=== PATIENT | male | born 1935 | race Caucasian/White ===

== ENCOUNTER → 2020-05-14 | Outpatient (CLI) | payer MEDICARE ==
--- NOTE | 2020-05-14 09:50 | CT ---
EXAMINATION TYPE: CT lumbar spine wo con DATE OF EXAM: 05/14/2020 7:09 AM COMPARISON: None HISTORY: Low back pain CT DLP: 894 mGycm Automated exposure control for dose reduction was used. Unenhanced CT of the lumbar spine was performed. Bone and soft tissue window settings are submitted as well as coronal and sagittal reconstructions. There is diffuse mild to moderate disc space narrowing and anterior osteophytosis. No vertebral body height loss. L1-L2: No disc herniation protrusion or central stenosis. No evidence for foraminal encroachment. L2-L3: There is circumferential disc bulge with effacement of the ventral aspect of the thecal sac. M oderate central stenosis. Mild left foraminal encroachment. L3-L4: Mild disc bulge. Mild canal stenosis. Mild right foraminal encroachment. L4-L5: Mild disc bulge. No canal stenosis. Bilateral foraminal encroachment. Facet arthropathy. L5-S1: Minimal posterior disc protrusion. No canal stenosis. Severe bilateral foraminal encroachment. Facet arthropathy. IMPRESSION: Degenerative changes as above, worst at L2-L3 with moderate central stenosis, and L5-S1 bilateral sev ere neural foramina narrowing.
== END | disposition home or self-care (01) ==
LOC: RADCTMAIN 06:43
PROVIDERS: ATTEND Orthopaedic Surgery Orthopaedic Surgery of the Spine
DX: M48.061 Spinal stenosis, lumbar region without neurogenic claudication (principal); M47.816 Spondylosis without myelopathy or radiculopathy, lumbar region; M51.36 Other intervertebral disc degeneration, lumbar region; M54.16 Radiculopathy, lumbar region
CPT/HCPCS: 72131

== ENCOUNTER → 2021-01-08 | Outpatient (CLI) | payer MEDICARE, OTHER ==
--- NOTE | 2021-01-08 16:56 | CONS ---
CONSULTATION DATE OF SERVICE: 01/08/2021 This 85-year-old gentleman has been evaluated in [facility] for possible obstructive sleep apnea-hypopnea syndrome. HISTORY OF PRESENT ILLNESS/SLEEP-WAKE EVALUATION: Patient's usual sleep schedule is from 10 p.m. until 6:30 or 7 a.m. Usually no significant problems with falling asleep. No TV in bedroom. The patient usually sleeps on the side position and also in the chair. He snores loudly, according to his , and has witnessed episodes by her of stopped breathing during sleep. He wakes up from sleep 2 times with nocturia, episodes of gasping for air, sweating, heartburn. During the day, the patient falls asleep several times. Ulmer Sleepiness Scale is significantly increased to 12. No history of vivid dreams during naps. No history of hypnagogic hallucinations. 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 PAST SURGICAL HISTORY: Dorset filter insertion, permanent pacemaker insertion, surgery for melanoma of the face. MEDICATIONS: 1. Warfarin 2 mg once a day. 2. Aspirin 81 mg once a day. 3. Losartan 100 mg once a day. 4. Escitalopram. 5. Vitamin D3. 6. [id number] medication for acid reflux. SOCIAL HISTORY: Positive for smoking; quit 30 years ago. Alcohol consumption is occasional. FAMILY HISTORY: Thyroid problems, crib . REVIEW OF SYSTEMS: Awakenings from sleep, sleepiness during the day, loud snoring. PHYSICAL EXAMINATION: GENERAL: A pleasant gentleman without distress. VITAL SIGNS: BP 168/79, HR 68, RR 12, height 5 feet 6-1/2 inches, weight 212 pounds. Temperature 98.2, oxygen saturation at room air 96%. HEENT: PERRLA, EOMI. Evaluation of oropharynx showed tongue protrudes midline. Extremely low position of soft palate. Mallampati IV. NECK: Supple. No JVD. Thyroid is not palpable. Wide neck; 18 inches in circumference. LUNGS: Clear to percussion and to auscultation. Good air exchange. No wheezing or rhonchi. HEART: S1, S2 regular. No murmurs, gallops or rubs. ABDOMEN: Obese. EXTREMITIES: No clubbing or cyanosis. CASHIER RECEPTIONIST: Awake, alert, and oriented X3. Cranial nerves 2 to 7 intact. There is no fasciculation or atrophy. noted. No focal deficits observed. IMPRESSION: 1. Loud snoring, witnessed episodes of stopped breathing during sleep, awakenings from sleep with nocturia, extremely low position of soft palate, Mallampati IV, wide neck at 18 inches in circumference, sleepiness, Ulmer Sleepiness Scale is 12; obstructive sleep apnea-hypopnea syndrome. 2. Anxiety. 3. Hypertension. 4. History of left leg deep venous thrombosis with pulmonary embolism. 5. Status post Gila filter insertion. 6. Status post permanent pacemaker insertion. 7. Status post surgical treatment of melanoma of the face. PLAN: 1. Polysomnography for evaluation of patient's breathing during sleep. 2. CPAP/BiPAP titration if sleep study confirms obstructive sleep apnea-hypopnea syndrome. 3. Preferable position during sleep on the side. 4. No driving if patient feels any sleepiness. 5. I will see patient for follow up visit to explain results of testing and following plan. Thank you very much for referring this patient for consultation. Sincerely, Marty Luciano MD, PhD, FAASM Diplomat of [place] [employer] [place] [employer] [facility] [facility] [place] MMODL / IJN: [id number] /
== END ==
LOC: SLEEP 15:17
PROVIDERS: ATTEND Internal Medicine
DX: G47.33 Obstructive sleep apnea (adult) (pediatric) (principal); F41.9 Anxiety disorder, unspecified; I10 Essential (primary) hypertension; Z86.718 Personal history of other venous thrombosis and embolism; Z95.0 Presence of cardiac pacemaker; Z95.828 Presence of other vascular implants and grafts; Z48.817 Encounter for surgical aftercare following surgery on the skin and subcutaneous tissue; Z87.891 Personal history of nicotine dependence

== ENCOUNTER → 2021-06-18 | Day surgery (SDC) | payer MEDICARE ==
[2021-06-15 13:30] VITALS: BMI 31.3
[~2021-06-18] MED LIST: SODIUM CHLORIDE 0.9% 1,000 ML IV SCH
[2021-06-18 09:13] VITALS: BP 181/80; PULSE 74; RESP 16; TEMP 98.2
[2021-06-18 09:29] LABS: INR 2.2 (<1.2)
--- NOTE | 2021-06-18 17:15 | P.EPPROC ---
- EP Procedure Note Electrophysiology Procedure Note: Diagnosis Recurrent syncope/presyncope Twelve-lead EKG shows atrial paced rhythm, prolonged VT interval Frequent PVCs Tilt table test for protocol Baseline blood pressure 205/89 mmHg, Baseline heart rate 63 beats a minute Patient was tilted upright at night of 70 per protocol There was an immediate drop in his blood pressure to 163/70 mmHg upon assuming upright position but without any symptoms Thereafter his blood pressure remained elevated. 160 290 mmHg systolic. Diastolic blood pressures are normal No symptoms noted in his late the laid supine Impression Baseline 12-lead EKG shows an atrial paced rhythm with appropriate interval and frequent PVCs Baseline hypertension No evidence for neurocardiogenic syncope or dysautonomia
== END ==
LOC: CATHEP 08:30
PROVIDERS: ATTEND Internal Medicine Clinical Cardiac Electrophysiology
DX: R55 Syncope and collapse (principal); I25.10 Atherosclerotic heart disease of native coronary artery without angina pectoris; E66.9 Obesity, unspecified; I48.0 Paroxysmal atrial fibrillation; I44.2 Atrioventricular block, complete; Z86.718 Personal history of other venous thrombosis and embolism; Z79.01 Long term (current) use of anticoagulants; Z95.0 Presence of cardiac pacemaker; I49.3 Ventricular premature depolarization; G47.33 Obstructive sleep apnea (adult) (pediatric); I10 Essential (primary) hypertension; F17.210 Nicotine dependence, cigarettes, uncomplicated
CPT/HCPCS: 85610; 93660

== ENCOUNTER 2022-04-06 12:56 | Inpatient (IN) | payer MEDICARE ==
[2022-04-06] MEDS ORDERED: NITROGLYCERIN SL TABS 0.4 MG TAB SUBLINGUAL PRN (13:45)
[2022-04-06] MEDS ORDERED: SODIUM CHLORIDE 0.9% 1,000 ML IV ONE (14:06)
[2022-04-06] MEDS ORDERED: VERAPAMIL 2.5 MG/ML 2 ML AMP ONE (14:59)
[2022-04-06] MEDS ORDERED: fentaNYL (PF) 50 MCG/ML 2 ML AMP ONE (14:59)
[2022-04-06] MEDS ORDERED: HEPARIN SODIUM 1,000 UN/ML (10ML VL) ONE (14:59)
[2022-04-06] MEDS: HEPARIN SODIUM 1,000 UN/ML (10ML VL) IV ONE ×3 (15:52→16:30)
[2022-04-06] MEDS ORDERED: fentaNYL (PF) 50 MCG/ML 2 ML AMP IV ONE (15:59)
[2022-04-06] MEDS ORDERED: MIDAZOLAM 2 MG/2 ML VIAL IV ONE (15:59)
[2022-04-06] MEDS ORDERED: NITROGLYCERIN 1000MCG/10ML SYRINGE INTRACORON ONE (16:17)
[2022-04-06] MEDS ORDERED: IOPAMIDOL-370 125ML BTL INJ ONE ×2 (16:45)
[2022-04-06] MEDS ORDERED: IOPAMIDOL-370 100ML BTL INJ ONE (16:50)
[2022-04-06] MEDS: ACETAMINOPHEN TAB 325 MG TAB PO PRN (20:44)
[2022-04-06] MEDS: LOSARTAN 50 MG TAB PO SCH (20:45)
[2022-04-07] MEDS: ASPIRIN 81 MG PO SCH (07:31)
[2022-04-07] MEDS: LOSARTAN 50 MG TAB PO SCH ×2 (07:31→20:06)
[2022-04-07] MEDS ORDERED: WARFARIN 2 MG TAB PO SCH (09:45)
[2022-04-07] MEDS: ACETAMINOPHEN TAB 325 MG TAB PO PRN (10:04)
[2022-04-07] MEDS: METOPROLOL TARTRATE 25 MG TAB PO SCH ×2 (10:04→20:06)
[2022-04-07] MEDS: CLOPIDOGREL 75 MG TAB PO SCH (10:04)
--- NOTE | 2022-04-07 10:11 | P.PRCINT ---
Percutaneous Coronary Int. - Percutaneous Coronary Intervention Percutaneous Coronary Intervention: PROCEDURES PERFORMED: Bilateral coronary angiography, PCI mid OM2 with a 3.0 x 8mm Xience CASSANDRA, PCI proximal RCA with 3.5 x 12mm Xience CASSANDRA DATE OF PROCEDURE: 04/06/22 INDICATION: NSTEMI HISTORY: Patient is a pleasant 86-year-old male with history of prior CAD with prior stenting who presented with chest pain and was found to have elevated troponins. He had diagnostic heart catheterization which showed 95% OM2 joyce nosis and 90% RCA stenosis. Therefore PCI was recommended. CONSENT:I have discussed the risks, benefits and alternative therapies for the above-mentioned procedure and for both sedation/analgesia as well as necessary blood product administration, if indicated, as they pertain to this patient. The patient has indicated understanding and acceptance of the risks and procedures discussed. PROCEDURE: After the risks, benefits and alternatives of the above mentioned procedure explained in detail with the patient, informed consent was obtained. Patient was taken to the catheterization lab and prepped and draped in usual fashion. A 6-Cameroonian sheath had already been placed in the right radial artery. The decision was made to perform PCI of the OM 2. A CLS 3.5 guide was used to engage the left main. Heparin was given for ACT greater than 250. A 0.014 BMW wire was advanced into the distal OM 2. Balloon angioplasty was performed with a 1.5 and then a 2.5 balloon. Next a 3.0 x 8 mm Xience CASSANDRA was placed. Final angiograms were performed. Pre-intervention there was 95% stenosis and COCO 2 flow and postintervention there was 0% stenosis and COCO-3 flow. Decision was made to perform PCI of the RCA. A 6-Cameroonian FR4 guide was used to engage the RCA. A 0.014 MW wire was advanced into the distal RCA. Predilation was performed with a 2.5 balloon. Next a 3.5 x 12 mm Xience CASSANDRA was placed at the ostium. Final angiograms were performed. There was more distal 2030% stenosis felt best treated medically. Preintervention there was 90% stenosis and COCO 3 flow and postintervention there was 0% stenosis and COCO-3 flow. The right radial sheath was removed and a TR band was placed with hemostasis achieved. The patient tolerated the procedure well. Patient was transported back to the post catheterization holding area in stable condition. Conscious Sedation: Patient was monitored under the direct supervision of vision of myself for conscious sedation using Versed and fentanyl for a total duration of 51 minutes SELECTIVE CORONARY ARTERIOGRAPHY: LEFT MAIN: The left main is a large caliber vessel which bifurcates into the LAD and circumflex. There is 30% left main stenosis. LEFT ANTERIOR DESCENDING CORONARY ARTERY: LAD is a large caliber vessel which wraps around to the apex. There is a mid LAD 40% stenosis and otherwise mild luminal irregularities. LEFT CIRCUMFLEX CORONARY ARTERY: Left circumflex is a moderate caliber vessel with a moderate caliber OM2 which has a mid 95% stenosis. RIGHT CORONARY ARTERY: The right coronary artery is a moderate caliber vessel which gives off a PDA and PLV branch and is the dominant vessel. There is a proximal RCA 90% stenosis. FINAL IMPRESSION: 1. CAD as described above including 30% left main, 40% mid LAD, 95% OM2, 90% ostial RCA 2. S/p successful PCI mid OM2 with a 3.0 x 8mm Xience CASSANDRA, PCI proximal RCA with 3.5 x 12mm Xience CASSANDRA PLAN: 1. Aggressive risk factor modification per most recent ACC/AHA guidelines. 2. Continue coumadin and Plavix for 12 months.
[2022-04-07 11:14] LABS: Basophils % (A) 1 %; Eosinophils # (A) 0.1 k/uL (0-0.7); Eosinophils % (A) 2 %; HCT 43.8 % (39.0-53.0); HGB 14.1 gm/dL (13.0-17.5); Lymphocytes # (A) 1.1 k/uL (1.0-4.8); Lymphocytes % (A) 18 %; MCH 30.9 pg (25.0-35.0); MCHC 32.2 g/dL (31.0-37.0); MCV 95.8 fL (80.0-100.0); Mean Platelet Volume 8.6; Monocytes # (A) 0.5 k/uL (0-1.0); Monocytes % (A) 7 %; Neutrophils # (A) 4.6 k/uL (1.3-7.7); Neutrophils % (A) 72 %; Platelet Count 192 k/uL (150-450); RBC 4.57 m/uL (4.30-5.90); RDW 13.8 % (11.5-15.5); WBC 6.5 k/uL (3.8-10.6)
--- NOTE | 2022-04-07 11:15 | P.PN ---
Subjective Progress Note Date: 04/07/22 HISTORY OF PRESENT ILLNESS: This is an 86-year-old male who underwent cardiac catheterization with Dr. Harmon yesterday. He underwent stenting of the OM and RCA. Patient examined this morning at the bedside. Patient denies chest pain or pressure. Denies shortness of breath. Patient's blood pressure is elevated this morning with a systolic in the 180s. Right radial cath site with pulse present. PHYSICAL EXAM: VITAL SIGNS: Reviewed. GENERAL: Well-developed in no acute distress. NECK: Supple. No JVD or thyromegaly LUNGS: Respirations even and unlabored. Lungs essentially clear to auscultation bilaterally. HEART: Regular rate and rhythm. S1 and S2 heard. EXTREMITIES: Normal range of motion. No clubbing or cyanosis. Peripheral pulses intact. No lower extremity edema. ASSESSMENT: Non-STEMI, status post cardiac catheterization with stenting to the OM and RCA PLAN: Continue aspirin 81 mg daily Add atorvastatin 80 mg at night, Plavix 75 mg daily, and metoprolol tartrate 25 mg twice a day Continue losartan 50 mg twice a day Resume Coumadin Obtain 2-D echo to assess cardiac structure and function Patient may be discharged home this afternoon from a cardiac standpoint and follow up on an outpatient basis Nurse practitioner note has been reviewed by physician. Signing provider agrees with the documented findings, assessment, and plan of care. Objective - Vital Signs Vital signs: Vital Signs Temp 97.8 F 04/07/22 07:29 Pulse 78 04/07/22 07:29 Resp 18 04/07/22 07:29 BP 181/84 04/07/22 07:29 Pulse Ox 95 04/07/22 07:29 FiO2 Intake & Output 04/06/22 04/07/22 04/07/22 18:59 06:59 18:59 Intake Total 640 358 Output Total 250 Balance 390 358 Weight 95.4 kg Intake: IV 400 Oral 240 358 Output: Urine 250 Other: Voiding Method Toilet Toilet # Voids 3 1 # Bowel Movements 0 1
[2022-04-07 11:21] LABS: INR 1.2 (<1.2); Prothrombin Time 12.3 sec (9.0-12.0)
[2022-04-07 11:38] LABS: Calcium 8.9 mg/dL (8.4-10.2); Potassium 4.1 mmol/L (3.5-5.1)
[2022-04-07] MEDS ORDERED: HEPARIN SODIUM 1,000 UN/ML (10ML VL) IV ONE (11:51)
[2022-04-07] MEDS ORDERED: HEPARIN SODIUM 1,000 UN/ML (10ML VL) IV PRN (11:51)
[2022-04-07] MEDS: HEPARIN SOD,PORK IN 0.45% NACL 25,000 UNIT in 0.45% NACL 1 250ML.BAG IV SCH (12:11)
--- NOTE | 2022-04-07 12:19 | P.HPIM ---
History of Present Illness This is a pleasant 86 years old male with past medical history of Deep Vein Thrombosis on 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 Also he has elevated troponin concerning for STEMI. Patient underwent coronary angiography with PCI to the OM 2 and to the RCA because of 95% and 90% stenosis respectively. Today he is lying in the select unit comfortable. He denies any chest pain or dyspnea. No change in urine or bowel habits. No fever. He was seen in the hallway with the bedside nurse underwent well. Patient also concerned about his depression medication Lexapro Payroll Tax Specialist already on the case and the recommend in Coumadin and Plavix for 12 months. Also they recommended aspirin 81 mg He confirms to me takes Coumadin at home for many years for history of PE and DVT, his primary doctor recommended lifelong anticoagulation. Patient is hemodynamically stable. Labs including CBC is unremarkable. INR is 1.2. BMP is unremarkable. Review of Systems CONSTITUTIONAL: No fever, no malaise, no fatigue. HEENT: No recent visual problems or hearing problems. Denied any sore throat. CARDIOVASCULAR: No orthopnea, PND, no palpitations, no syncope. PULMONARY: No shortness of breath, no cough, no hemoptysis. GASTROINTESTINAL: No diarrhea, no nausea, no vomiting, no abdominal pain. Normoactive bowel sounds. NEUROLOGICAL: No headaches, no weakness, no numbness. HEMATOLOGICAL: Denies any bleeding or petechiae. GENITOURINARY: Denies any burning micturition, frequency, or urgency. MUSCULOSKELETAL/RHEUMATOLOGICAL: Denies any joint pain, swelling, or any muscle pain. ENDOCRINE: Denies any polyuria or polydipsia. Past Medical History Past Medical History: Cancer, Deep Vein Thrombosis (DVT), GERD/Reflux, Hypertension, Pulmonary Embolus (PE), Sleep Apnea/CPAP/BIPAP Additional Past Medical History / Comment(s): melanoma. prostate cancer tx with radiation seed. CPAP History of Any Multi-Drug Resistant Organisms: None Reported Past Surgical History: Heart Catheterization With Stent, Pacemaker Additional Past Surgical History / Comment(s): val filter Past Anesthesia/Blood Transfusion Reactions: Previous Problems w/ Anesthesia Additional Past Anesthesia/Blood Transfusion Reaction / Comment(s): difficult waking up after anesthesia, passed after anesthesia Date of Last Stent Placement:: unknown Type of Cardiac Device: Permanent Pacemaker Device Placement Date:: medtronic 06/04/2020 Past Psychological History: Depression Smoking Status: Former smoker Past Alcohol Use History: Occasional Additional Drug Use History / Comment(s): cbd cream - Past Family History Mother Family Medical History: Cancer Medications and Allergies Home Medications Medication Instructions Recorded Confirmed Type Aspirin [Adult Low Dose Aspirin EC] 81 mg PO DAILY 06/15/21 04/06/22 History Cholecalciferol [Vitamin D3 (25 50 mcg PO DAILY 06/15/21 04/06/22 History Mcg = 1000 Iu)] Losartan [Cozaar] 50 mg PO BID 06/15/21 04/06/22 History Escitalopram [Lexapro] 15 mg PO DAILY 04/06/22 04/06/22 History Omeprazole Magnesium [PriLOSEC OTC] 20 mg PO DAILY 04/06/22 04/06/22 History Warfarin Sodium [Jantoven] 2 mg PO SUMOTUTHFRSA 04/06/22 04/06/22 History Warfarin Sodium [Jantoven] 3 mg PO WE 04/06/22 04/06/22 History Atorvastatin [Lipitor] 80 mg PO HS #90 tab 04/07/22 Rx Clopidogrel [Plavix] 75 mg PO DAILY #90 tab 04/07/22 Rx Metoprolol Tartrate [Lopressor] 25 mg PO BID #180 tab 04/07/22 Rx Nitroglycerin Sl Tabs [Nitrostat] 0.4 mg SUBLINGUAL Q5M PRN #100 tab 04/07/22 Rx Allergies Allergy/AdvReac Type Severity Reaction Status Date / Time No Known Allergies Allergy Verified 04/06/22 17:40 Physical Exam Vitals: Vital Signs Temp Pulse Pulse Resp BP Pulse Ox 04/07/22 11:22 71 18 130/67 94 L 04/07/22 07:29 97.8 F 78 18 181/84 95 04/07/22 04:20 93 18 171/83 98 04/06/22 23:25 80 17 136/85 94 L 04/06/22 21:24 171/85 04/06/22 20:24 80 160/77 04/06/22 19:30 80 04/06/22 19:24 98 F 68 19 160/75 96 04/06/22 18:20 168/68 04/06/22 17:41 69 171/82 94 L 04/06/22 17:20 97.5 F L 65 20 187/84 96 04/06/22 14:07 98.5 F 63 16 201/109 96 Intake and Output 04/06/22 04/07/22 04/07/22 22:59 06:59 14:59 Intake Total 540 358 Balance 540 358 Intake: IV 300 Oral 240 358 Other: Voiding Method Toilet Toilet Toilet # Voids 1 3 1 # Bowel Movements 0 1 Weight 95.4 kg -GENERAL: The patient is alert and oriented x3, not in any acute distress. Obese HEENT: Pupils are round and equally reacting to light. EOMI. No scleral icterus. No conjunctival pallor. Normocephalic, atraumatic. No pharyngeal erythema. No thyromegaly. CARDIOVASCULAR: S1 and S2 present. No murmurs, rubs, or gallops. PULMONARY: Chest is clear to auscultation, no wheezing or crackles. ABDOMEN: Soft, nontender, nondistended, normoactive bowel sounds. No palpable or ganomegaly. MUSCULOSKELETAL: No joint swelling or deformity. EXTREMITIES: No cyanosis, clubbing, or pedal edema. NEUROLOGICAL: Gross neurological examination did not reveal any focal deficits. SKIN: No rashes. No petechiae Results CBC & Chem 7: 04/07/22 10:23 Labs: Abnormal Lab Results - Last 24 Hours (Table) 04/07/22 Range/Units 10:23 PT 12.3 H (9.0-12.0) sec INR 1.2 H (<1.2) Thrombosis Risk Factor Assmnt - Choose All That Apply Any of the Below Risk Factors Present?: Yes Each Factor Represents 1 point: Medical pt on bed rest Each Risk Factor Represents 3 Points: Age 75 years or older, History of DVT/PE Thrombosis Risk Factor Assessment Total Risk Factor Score: 7 Thrombosis Risk Factor Assessment Level: High Risk Assessment and Plan Assessment: None STEMI, status post PCI to the OM2 and to the RCA History of DVT and pulmonary embolism, on warfarin , subtherapeutic INR history of GERD Hypertension History of sleep apnea on CPAP/BiPAP History of melanoma History of coronary artery disease status post stent Status post Val Holter Status post permanent pacemaker Obesity with BMI of 32.9 Plan: This is a pleasant 86 years old male who presents with non-STEMI status post PCI. Also has subtherapeutic INR with history of PE and DVT. Continue with aspirin and Plavix and metoprolol Cardiology team on the case Resume Coumadin, give extra dose today. Check INR. Start heparin drip for bridging Labs and medication were reviewed.. Continue same treatment. Continue with symptomatic treatment. Resume home medication. Monitor lytes and vitals. DVT and GI prophylaxis. Further recommendations depends on the clinical course of the patient DVT prophylaxis: heparin and Coumadin GI Prophylaxis: Pepcid Case and plan discussed with patient and at bedside and they agree
[2022-04-07] MEDS ORDERED: HYDROcodone/APAP 5-325MG 1 EACH TAB PO PRN (12:20)
[2022-04-07] MEDS ORDERED: ACETAMINOPHEN TAB 325 MG TAB PO PRN (12:21)
[2022-04-07] MEDS: ESCITALOPRAM 5 MG TAB PO SCH (12:39)
[2022-04-07] MEDS ORDERED: polyethylene glycoL 3350 17 GM POWD.PACK PO PRN (14:28)
[2022-04-07] MEDS: DOCUSATE 100 MG CAP PO SCH ×2 (15:26→20:06)
[2022-04-07] MEDS ORDERED: WARFARIN 5 MG TAB PO ONE (18:00)
[2022-04-07] MEDS: ATORVASTATIN 80 MG TAB PO SCH (20:06)
[2022-04-08 07:02] LABS: Basophils % (A) 1 %; Eosinophils # (A) 0.1 k/uL (0-0.7); Eosinophils % (A) 2 %; HCT 44.3 % (39.0-53.0); HGB 14.1 gm/dL (13.0-17.5); Lymphocytes # (A) 1.6 k/uL (1.0-4.8); Lymphocytes % (A) 24 %; MCH 30.8 pg (25.0-35.0); MCHC 31.9 g/dL (31.0-37.0); MCV 96.4 fL (80.0-100.0); Mean Platelet Volume 8.3; Monocytes # (A) 0.5 k/uL (0-1.0); Monocytes % (A) 7 %; Neutrophils # (A) 4.6 k/uL (1.3-7.7); Neutrophils % (A) 65 %; Platelet Count 206 k/uL (150-450); RBC 4.59 m/uL (4.30-5.90); RDW 13.9 % (11.5-15.5)
[2022-04-08 07:11] LABS: INR 1.1 (<1.2)
[2022-04-08] MEDS: ESCITALOPRAM 5 MG TAB PO SCH (07:25)
[2022-04-08] MEDS: DOCUSATE 100 MG CAP PO SCH ×2 (07:25→19:59)
[2022-04-08] MEDS: METOPROLOL TARTRATE 25 MG TAB PO SCH ×2 (07:25→19:59)
[2022-04-08] MEDS: ASPIRIN 81 MG PO SCH (07:25)
[2022-04-08] MEDS: CLOPIDOGREL 75 MG TAB PO SCH (07:25)
[2022-04-08] MEDS: LOSARTAN 50 MG TAB PO SCH ×2 (07:25→19:59)
[2022-04-08] MEDS ORDERED: WARFARIN 2 MG TAB PO SCH (09:36)
[2022-04-08] MEDS: HEPARIN SOD,PORK IN 0.45% NACL 25,000 UNIT in 0.45% NACL 1 250ML.BAG IV SCH (09:45)
--- NOTE | 2022-04-08 09:56 | CA ---
Transthoracic Echo Report Name: Raz Mullins Age: 86 Gender: M : 1935 Exam Date: 04/07/2022 10:11 Exam Location: [place] [facility] Ht (in): 67 Wt (lb): 210 Ordering Physician: Rosita Bowen Attending/Referring Phys: [id number], Andrés Zoology Teacher Manda Gonzalez, QUIRINO Procedure CPT: Indications: LV function Cardiac Hx: Technical Quality: Contrast 1: Total Dose (mL): Contrast 2: Total Dose (mL): MEASUREMENTS (Male / Female) Normal Values 2D ECHO LV Diastolic Diameter PLAX 4.4 cm 4.2 - 5.9 / 3.9 - 5.3 cm LV Systolic Diameter PLAX 4.2 cm IVS Diastolic Thickness 1.2 cm 0.6 - 1.0 / 0.6 - 0.9 cm LVPW Diastolic Thickness 1.9 cm 0.6 - 1.0 / 0.6 - 0.9 cm LV Relative Wall Thickness 0.7 RV Internal Dim ED PLAX 3.0 cm LA Systolic Diameter LX 4.2 cm 3.0 - 4.0 / 2.7 - 3.8 cm M-MODE MV E Point Septal Separation 0.7 cm DOPPLER MV Area PHT 3.4 cm??? Mitral E Point Velocity 51.8 cm/s Mitral A Point Velocity 20.7 cm/s Mitral E to A Ratio 2.5 MV Deceleration Time 224.0 ms FINDINGS Left Ventricle Normal Left ventricular size, mild wall thickness left ventricular ejection fraction is estimated at 50-55 %. Right Ventricle Normal right ventricular size and function. Right Atrium Normal right atrial size. Left Atrium Mildly increased left atrial diameter. Mitral Valve Structurally normal mitral valve. Mild mitral regurgitation. Aortic Valve Trileaflet aortic valve. Aortic valve sclerosis. Tricuspid Valve Structurally normal tricuspid valve. Mild tricuspid regurgitation. Pulmonic Valve Structurally normal pulmonic valve. Pericardium Normal pericardium. Aorta Normal size aortic root and proximal ascending aorta. CONCLUSIONS Normal LV size and function Previewed by: Dr. Yobani Osman MD (Electronically Signed) Final Date: 08 April 2022 09:55
--- NOTE | 2022-04-08 12:29 | P.PN ---
Subjective Progress Note Date: 04/08/22 HISTORY OF PRESENT ILLNESS: This is an 86-year-old male who underwent cardiac catheterization with Dr. Harmon yesterday. He underwent stenting of the OM and RCA. Patient examined this morning at the bedside. Patient denies chest pain or pressure. Denies shortness of breath. Patient's blood pressure is elevated this morning with a systolic in the 180s. Right radial cath site with pulse present. 04/08/2022 Patient examined this morning at the bedside. Patient denies chest pain or pressure. He denies shortness of breath. Patient has a history of PE/DVT. He has been resumed on Coumadin yesterday. He was started on IV heparin per internal medicine. Vital signs are stable. Echocardiogram completed revealing ejection fraction 50-55%, mild MR, mild TR. PHYSICAL EXAM: VITAL SIGNS: Reviewed. GENERAL: Well-developed in no acute distress. NECK: Supple. No JVD or thyromegaly LUNGS: Respirations even and unlabored. Lungs essentially clear to auscultation bilaterally. HEART: Regular rate and rhythm. S1 and S2 heard. EXTREMITIES: Normal range of motion. No clubbing or cyanosis. Peripheral pulses intact. No lower extremity edema. ASSESSMENT: Non-STEMI, status post cardiac catheterization with stenting to the OM and RCA PLAN: Continue current cardiac medications Patient may be discharged home this afternoon from a cardiac standpoint and follow up on an outpatient basis Nurse practitioner note has been reviewed by physician. Signing provider agrees with the documented findings, assessment, and plan of care. Objective - Vital Signs Vital signs: Vital Signs Temp 97.7 F 04/08/22 07:22 Pulse 68 04/08/22 11:00 Resp 20 04/08/22 11:00 BP 116/71 04/08/22 11:00 Pulse Ox 94 L 04/08/22 11:00 FiO2 Intake & Output 04/07/22 04/08/22 04/08/22 18:59 06:59 18:59 Intake Total 594 455.667 Balance 594 455.667 Intake: Intake, IV Titration 215.667 Amount Heparin Sod,Pork in 0.45% 215.667 NaCl 25,000 unit In 0.45 % NaCl 1 250ml.bag @ 10. 482 UNITS/KG/HR 10 mls/hr IV .Q24H EDWARDO Rx#: [id number] Oral 594 240 Other: Voiding Method Toilet Toilet Toilet # Voids 2 1 0 # Bowel Movements 0 1 - Labs CBC & Chem 7: 04/08/22 06:40 04/07/22 10:23 Labs: Abnormal Lab Results - Last 24 Hours (Table) 04/07/22 Range/Units 17:19 APTT 53.0 H (22.0-30.0) sec
[2022-04-08] MEDS ORDERED: diphenhydrAMINE 25 MG CAP PO PRN (15:58)
[2022-04-08] MEDS ORDERED: WARFARIN 2 MG TAB PO ONE ×2 (18:00)
[2022-04-08] MEDS ORDERED: WARFARIN 10 MG TAB PO ONE (18:00)
[2022-04-08] MEDS ORDERED: WARFARIN 5 MG TAB PO ONE (18:00)
--- NOTE | 2022-04-08 18:35 | P.PN ---
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 Also he has elevated troponin concerning for STEMI. Patient underwent coronary angiography with PCI to the OM 2 and to the RCA because of 95% and 90% stenosis respectively. Today he is lying in the select unit comfortable. He denies any chest pain or dyspnea. No change in urine or bowel habits. No fever. He was seen in the hallway with the bedside nurse underwent well. Patient also concerned about his depression medication [facility] already on the case and the recommend in Coumadin and Plavix for 12 months. Also they recommended aspirin 81 mg He confirms to me takes Coumadin at home for many years for history of PE and DVT, his primary doctor recommended lifelong anticoagulation. Patient is hemodynamically stable. Labs including CBC is unremarkable. INR is 1.2. BMP is unremarkable. 04/08/2022 Patient remains asymptomatic, no chest pain or dyspnea. No other symptoms. Vitals stable. INR actually went below and to 1.1 after received 5 mg of Coumadin last night area Patient remains on heparin drip and we'll give it milligrams of Coumadin tonight and check INR tomorrow Patient family doctor is out of town, patient is to continue on anticoagulation. Objective - Vital Signs Vital signs: Vital Signs Temp 97.7 F 04/08/22 07:22 Pulse 66 04/08/22 07:34 Resp 18 04/08/22 07:22 BP 118/70 04/08/22 07:22 Pulse Ox 96 04/08/22 07:22 FiO2 Intake & Output 04/07/22 04/08/22 04/08/22 18:59 06:59 18:59 Intake Total 594 455.667 Balance 594 455.667 Intake: Intake, IV Titration 215.667 Amount Heparin Sod,Pork in 0.45% 215.667 NaCl 25,000 unit In 0.45 % NaCl 1 250ml.bag @ 10. 482 UNITS/KG/HR 10 mls/hr IV .Q24H [facility] Rx#: [id number] Oral 594 240 Other: Voiding Method Toilet Toilet Toilet # Voids 2 1 0 # Bowel Movements 0 1 - Exam -GENERAL: The patient is alert and oriented x3, not in any acute distress. Obese HEENT: Pupils are round and equally reacting to light. EOMI. No scleral icterus. No conjunctival pallor. Normocephalic, atraumatic. No pharyngeal erythema. No thyromegaly. CARDIOVASCULAR: S1 and S2 present. No murmurs, rubs, or gallops. PULMONARY: Chest is clear to auscultation, no wheezing or crackles. ABDOMEN: Soft, nontender, nondistended, normoactive bowel sounds. No palpable organomegaly. MUSCULOSKELETAL: No joint swelling or deformity. EXTREMITIES: No cyanosis, clubbing, or pedal edema. NEUROLOGICAL: Gross neurological examination did not reveal any focal deficits. SKIN: No rashes. no petechiae. - Labs CBC & Chem 7: 04/08/22 06:40 04/07/22 10:23 Labs: Abnormal Lab Results - Last 24 Hours (Table) 04/07/22 04/07/22 04/07/22 Range/Units 10:23 10:23 17:19 PT 12.3 H (9.0-12.0) sec INR 1.2 H (<1.2) APTT 53.0 H (22.0-30.0) sec Sodium 135 L (137-145) mmol/L Glucose 131 H (74-99) mg/dL Assessment and Plan Assessment: None STEMI, status post PCI to the OM2 and to the RCA History of DVT and pulmonary embolism, on warfarin , subtherapeutic INR history of GERD Hypertension History of sleep apnea on CPAP/BiPAP History of melanoma History of coronary artery disease status post stent Status post [place] Holter Status post permanent pacemaker Obesity with BMI of 32.9 Plan: This is a pleasant 86 years old male who presents with non-STEMI status post PCI. Also has subtherapeutic INR with history of PE and DVT. Continue with aspirin and Plavix and metoprolol Cardiology team on the case Resume Coumadin, give higher dose today. Check INR. Continue with heparin drip for bridging Labs and medication were reviewed.. Continue same treatment. Continue with symptomatic treatment. Resume home medication. Monitor lytes and vitals. DVT and GI prophylaxis. Further recommendations depends on the clinical course of the patient DVT prophylaxis: heparin and Coumadin GI Prophylaxis: Pepcid Case and plan discussed with patient at bedside and they agree
[2022-04-08] MEDS: ATORVASTATIN 80 MG TAB PO SCH (19:59)
[2022-04-09 03:43] VITALS: RESP 16; TEMP 98
[2022-04-09] MEDS: CLOPIDOGREL 75 MG TAB PO SCH (08:24)
[2022-04-09] MEDS: LOSARTAN 50 MG TAB PO SCH (08:24)
[2022-04-09] MEDS: ESCITALOPRAM 5 MG TAB PO SCH (08:24)
[2022-04-09] MEDS: ASPIRIN 81 MG PO SCH (08:24)
[2022-04-09] MEDS: METOPROLOL TARTRATE 25 MG TAB PO SCH (08:24)
[2022-04-09] MEDS: DOCUSATE 100 MG CAP PO SCH (08:24)
[2022-04-09 10:04] LABS: INR 1.8 (<1.2); Partial Thromboplastin Time 48.2 sec (22.0-30.0); Prothrombin Time 17.8 sec (9.0-12.0)
[2022-04-09 12:15] VITALS: BP 155/87; PULSE 82
--- NOTE | 2022-04-09 13:35 | P.PN ---
Subjective Progress Note Date: 04/09/22 HISTORY OF PRESENT ILLNESS: This is an 86-year-old male who underwent cardiac catheterization with Dr. Harmon yesterday. He underwent stenting of the OM and RCA. Patient examined this morning at the bedside. Patient denies chest pain or pressure. Denies shortness of breath. Patient's blood pressure is elevated this morning with a systolic in the 180s. Right radial cath site with pulse present. 04/08/2022 Patient examined this morning at the bedside. Patient denies chest pain or pressure. He denies shortness of breath. Patient has a history of PE/DVT. He has been resumed on Coumadin yesterday. He was started on IV heparin per internal medicine. Vital signs are stable. Echocardiogram completed revealing ejection fraction 50-55%, mild MR, mild TR. 04/09/2022 Patient examined this morning is bedside. Patient denies chest pain or pressure. He denies shortness of breath. Vital signs are currently stable. PHYSICAL EXAM: VITAL SIGNS: Reviewed. GENERAL: Well-developed in no acute distress. NECK: Supple. No JVD or thyromegaly LUNGS: Respirations even and unlabored. Lungs essentially clear to auscultation bilaterally. HEART: Regular rate and rhythm. S1 and S2 heard. EXTREMITIES: Normal range of motion. No clubbing or cyanosis. Peripheral pulses intact. No lower extremity edema. ASSESSMENT: Non-STEMI, status post cardiac catheterization with stenting to the OM and RCA PLAN: Continue current cardiac medications Patient may be discharged home this afternoon from a cardiac standpoint and follow up on an outpatient basis Will sign off. Please reconsult if needed. Nurse practitioner note has been reviewed by physician. Signing provider agrees with the documented findings, assessment, and plan of care. Objective - Vital Signs Vital signs: Vital Signs Temp 98 F 04/09/22 03:42 Pulse 82 04/09/22 12:00 Resp 16 04/09/22 12:00 BP 155/87 04/09/22 12:00 Pulse Ox 95 04/09/22 12:00 FiO2 Intake & Output 04/08/22 04/09/22 04/09/22 18:59 06:59 18:59 Intake Total 575.667 200 120 Balance 575.667 200 120 Intake: Intake, IV Titration 215.667 Amount Heparin Sod,Pork in 0.45% 215.667 NaCl 25,000 unit In 0.45 % NaCl 1 250ml.bag @ 10. 482 UNITS/KG/HR 10 mls/hr IV .Q24H [facility] Rx#: [id number] Oral 360 200 120 Other: Voiding Method Toilet Toilet Toilet # Voids 1 2 # Bowel Movements 1 - Labs CBC & Chem 7: 04/08/22 06:40 04/07/22 10:23 Labs: Abnormal Lab Results - Last 24 Hours (Table) 04/08/22 04/09/22 Range/Units 17:21 09:29 PT 17.8 H (9.0-12.0) sec INR 1.8 H (<1.2) APTT 56.0 H 48.2 H (22.0-30.0) sec
--- NOTE | 2022-04-10 04:24 | P.DS ---
Providers Date of admission: 04/06/22 13:43 Attending physician: Anne Jorge Primary care physician: Anne Jorge [facility] Course: Diagnoses: None STEMI, status post PCI to the OM2 and to the RCA History of DVT and pulmonary embolism, on warfarin , subtherapeutic INR, but significantly improved prior to discharge history of GERD Hypertension History of sleep apnea on CPAP/BiPAP History of melanoma History of coronary artery disease status post stent Status post [place] Holter Status post permanent pacemaker Obesity with BMI of 32.9 Hospital course: This is a pleasant 86 years old male with past medical history of Deep Vein Thrombosis on 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 Also he has elevated troponin concerning for STEMI. Patient underwent coronary angiography with PCI to the OM 2 and to the RCA because of 95% and 90% stenosis respectively. Patient was started by aspirin and Plavix by cardiology team After the procedure patient was asymptomatic and he was doing well, however because of his subtherapeutic INR he was started on heparin drip and resumed his Coumadin which basically take it at 2 mg daily except on Tuesday 3 mg. First day I saw the patient he received higher dose of Coumadin 5 mg but his INR went down to 1.2 down to 1.1. So he received it milligrams and today his INR To 1.8. Today patient was a still asymptomatic and doing well however he was so adamant to leave the hospital and being discharged (actually patient was upset that if he was not going to be discharged today, and when I came to see the patient was already dressed up and sitting in his chair), he does not want to stay in the hospital to monitor his hemoglobin and INR, I explained to the patient and later on to the at bedside that his INR tomorrow could be subtherapeutic which is less likely, most likely it will be therapeutic or supratherapeutic but cannot predict how high it will go therefore I recommended that he stay in the hospital to be monitored however patient and want to go home , patient wants to resume his Coumadin tonight at 2 mg however wants him to wait till tomorrow to take his Coumadin dose, both and agree to go and check his INR at Dr. Mart's office on this coming Tuesday. Dr. Mart is his PCP but he is out of town until next week, patient states he has PA at the office whom can help him. As plan B patient can go and check his INR on Tuesday with office automation technician office per Dr. Lucas today. Patient and informed and they agree. Patient also confirmed to me he has this warfarin prescription at home, rest of cardiac medication was sent by cardiology team to the pharmacy. This was confirmed with the bedside nurse. The have extensive discussion with the patient and later on with the patient and his about the risks and benefits of anticoagulation while he is also on aspirin and Plavix, including but not limited to the risk of GI or brain bleed and/or and he verbalized understanding and acceptance to continue with all blood thinner and antiplatelets including Coumadin, aspirin and Plavix. At this point it felt like the benefits more than the risk. Patient was cleared for discharge by office automation technician Problems and management plan were discussed with the patient and he verbalized understanding and acceptance Patient was found stable and can be discharged home and guarded prognosis however he needs follow-up as an outpatient. Patient was instructed to follow up with PCP Dr. Julius Mart within one week and patient agrees Patient also was instructed to follow up with Dr. Harmon in one week and he agrees I tried to call Dr. Mart office but there was no answer Physical exam Gen: patient is a AAOx3, no distress CVS: S1-S2, RRR, no murmur Lungs: B/L CTA, no wheezing Abdomen: soft, no distention, no tenderness, positive bowel sounds Extremity: no leg edema or induration Time spent more than 35 minutes Plan - Discharge Summary Discharge Rx Participant: No New Discharge Prescriptions: New Clopidogrel [Plavix] 75 mg PO DAILY #90 tab Atorvastatin [Lipitor] 80 mg PO HS #90 tab Metoprolol Tartrate [Lopressor] 25 mg PO BID #180 tab Nitroglycerin Sl Tabs [Nitrostat] 0.4 mg SUBLINGUAL Q5M PRN #100 tab PRN Reason: Chest Pain Continue Cholecalciferol [Vitamin D3 (25 Mcg = 1000 Iu)] 50 mcg PO DAILY Losartan [Cozaar] 50 mg PO BID Aspirin [Adult Low Dose Aspirin EC] 81 mg PO DAILY Omeprazole Magnesium [PriLOSEC OTC] 20 mg PO DAILY Warfarin Sodium [Jantoven] 2 mg PO SUMOTUTHFRSA Warfarin Sodium [Jantoven] 3 mg PO WE Escitalopram [Lexapro] 15 mg PO DAILY Discharge Medication List Aspirin [Adult Low Dose Aspirin EC] 81 mg PO DAILY 06/15/21 [History] Cholecalciferol [Vitamin D3 (25 Mcg = 1000 Iu)] 50 mcg PO DAILY 06/15/21 [History] Losartan [Cozaar] 50 mg PO BID 06/15/21 [History] Escitalopram [Lexapro] 15 mg PO DAILY 04/06/22 [History] Omeprazole Magnesium [PriLOSEC OTC] 20 mg PO DAILY 04/06/22 [History] Warfarin Sodium [Jantoven] 2 mg PO SUMOTUTHFRSA 04/06/22 [History] Warfarin Sodium [Jantoven] 3 mg PO WE 04/06/22 [History] Atorvastatin [Lipitor] 80 mg PO HS #90 tab 04/07/22 [Rx] Clopidogrel [Plavix] 75 mg PO DAILY #90 tab 04/07/22 [Rx] Metoprolol Tartrate [Lopressor] 25 mg PO BID #180 tab 04/07/22 [Rx] Nitroglycerin Sl Tabs [Nitrostat] 0.4 mg SUBLINGUAL Q5M PRN #100 tab 04/07/22 [Rx] Follow up Appointment(s)/Referral(s): Anne Jorge MD [Primary Care Provider] - 1 Week Juaquin Harmon DO [STAFF PHYSICIAN] - 04/13/22 11:30 am Julius Bullock MD [Medical Doctor] - 1 Week Patient Instructions/Handouts: After Radial Heart Catheterization (GEN) Activity/Diet/Wound Care/Special Instructions: PT/INR to be drawn at cardiology please follow up with your primary care doctor office and/or office automation technician office on tuesday04/09/2022 to check your INR, your goal INR is 2-3 heart healthy diet activity is restricted till you see your doctor Discharge Disposition: HOME SELF-CARE
== END 2022-04-09 14:10 | disposition home or self-care (01) | DRG 247 ==
LOC: 3SCARD 13:43
PROVIDERS: ADMIT Family Medicine; ATTEND Family Medicine
PROC: 027035Z Dilation of Coronary Artery, One Artery with Two Drug-eluting Intraluminal Devices, Percutaneous Approach (ICD-10-PCS; principal; 2022-04-07)
DX: I21.4 Non-ST elevation (NSTEMI) myocardial infarction (principal); I25.10 Atherosclerotic heart disease of native coronary artery without angina pectoris; I10 Essential (primary) hypertension; F32.A Depression, unspecified; K21.9 Gastro-esophageal reflux disease without esophagitis; E66.9 Obesity, unspecified; G47.30 Sleep apnea, unspecified; Z68.32 Body mass index [BMI] 32.0-32.9, adult; Z87.891 Personal history of nicotine dependence; Z86.718 Personal history of other venous thrombosis and embolism; Z86.711 Personal history of pulmonary embolism; Z95.0 Presence of cardiac pacemaker; Z95.828 Presence of other vascular implants and grafts; Z79.01 Long term (current) use of anticoagulants; Z79.02 Long term (current) use of antithrombotics/antiplatelets; Z79.82 Long term (current) use of aspirin; Z79.899 Other long term (current) drug therapy; Z95.5 Presence of coronary angioplasty implant and graft; Z85.820 Personal history of malignant melanoma of skin; Z85.46 Personal history of malignant neoplasm of prostate; Z92.3 Personal history of irradiation
CPT/HCPCS: 80048; 85025; 85610; 85730; 93306

== ENCOUNTER → 2022-09-17 | Outpatient (CLI) | payer MEDICARE ==
--- NOTE | 2022-09-21 08:44 | PE ---
EXAMINATION TYPE: PET CT fusion skull to thigh DATE OF EXAM: 09/17/2022 COMPARISON: NONE HISTORY: Solitary pulmonary nodule, recent abnormal CT TECHNIQUE: Following the intravenous administration of 10.12 mCi of F-18 FDG, whole body images are performed from the skull base to the midthigh. Images are reviewed on the computer in the coronal, a xial, and sagittal planes. Reconstructed rotating images are created on independent workstation and reviewed on the computer. A localization and attenuation correction CT is performed in conjunction with the PET scan. Blood glucose level equals 115. SCAN: Initial Scan FINDINGS: SKULL BASE AND NECK: No areas of abnormal hypermetabolic uptake. CHEST, MEDIASTINUM, AND HILAR REGION: Background moderate underlying emphysematous change with mild t o moderate parenchymal fibrosis in the lower lungs. There is peripheral 5.0 x 3.3 cm right lower lobe hypermetabolic mass axial image 119, max SUV is 10.59 on axial image 113. There is marked enlarged hypermetabolic subcarinal lymph node measuring 5.6 x 4.2 cm axial image 104 with max SUV of 9.17 on axial image 105. No additional areas of abnormal hypermetabolic uptake. ABDOMEN AND PELVIS: Nonspecific 2.8 cm mildly hypermetabolic hypodense round lesion in the superior s pleen axial image 125, max SUV is 4.45. Mildly hypermetabolic 1.6 x 1.3 cm left adrenal mass axial image 148, max SUV is 2.93. Normal excretion is present. Some focal increased uptake along diverticulum in the left upper quadran t is nonspecific. Mild hypermetabolic uptake proximal sigmoid colon level at site of additional diver ticular disease is nonspecific. No additional areas of abnormal hypermetabolic uptake. OSSEOUS STRUCTURES: No areas of abnormal hypermetabolic uptake. OTHER CT: Low lung volumes and cardiomegaly with multi lead pacemaker. Severe three-vessel coronary a rtery calcification is present. Moderate to severe calcified plaque right carotid bulb. Moderate severe fat replaced atrophy in the head and body. Incidental small duodenal diverticulum max imum is 161. Diffuse colonic diverticulosis. Numerous brachytherapy seeds throughout the prostate gla nd are evident in the lower pelvis. 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 Nonspecific superior splenic lesion in which a dditional metastatic lesion cannot be excluded.
== END | disposition home or self-care (01) ==
LOC: RADPETMAIN 07:48
PROVIDERS: ATTEND Internal Medicine Critical Care Medicine
DX: R91.8 Other nonspecific abnormal finding of lung field (principal); D73.9 Disease of spleen, unspecified; R59.0 Localized enlarged lymph nodes
CPT/HCPCS: 78815; A9552

== ENCOUNTER 2022-09-23 10:13 | Emergency (ER) | payer MEDICARE ==
[2022-09-23 10:19] VITALS: TEMP 98.6
[2022-09-23 10:40] VITALS: RESP 18
[2022-09-23 11:08] LABS: Basophils % (A) 0 %; Eosinophils # (A) 0.1 k/uL (0-0.7); Eosinophils % (A) 1 %; HCT 43.3 % (39.0-53.0); HGB 13.9 gm/dL (13.0-17.5); Hypochromasia Moderate; Lymphocytes # (A) 1.1 k/uL (1.0-4.8); Lymphocytes % (A) 10 %; MCH 28.7 pg (25.0-35.0); MCV 89.7 fL (80.0-100.0); Mean Platelet Volume 8.2; Monocytes # (A) 0.6 k/uL (0-1.0); Monocytes % (A) 6 %; Neutrophils % (A) 82 %; Platelet Count 265 k/uL (150-450); RBC 4.83 m/uL (4.30-5.90); RDW 15.1 % (11.5-15.5)
--- NOTE | 2022-09-23 11:16 | XR ---
EXAMINATION TYPE: XR chest 2V DATE OF EXAM: 09/23/2022 COMPARISON: 09/16/2022 HISTORY: Shortness of breath TECHNIQUE: Frontal and lateral views of the chest are obtained. FINDINGS: Scattered senescent parenchymal changes noted. Hyperinflation compatible with COPD. Right basilar mass persists. Scattered calcified plaques are unchanged. Heart size is stable. Mediastinal structures are stable and grossly unremarkable. No evidence for hilar prominence. Degenerative changes dorsal spine. IMPRESSION: 1. Stable chest with right lower lobe mass.
[2022-09-23 11:19] LABS: Albumin 3.9 g/dL (3.5-5.0); Calcium 8.8 mg/dL (8.4-10.2); Potassium 4.1 mmol/L (3.5-5.1); Total Bilirubin 1.2 mg/dL (0.2-1.3)
--- NOTE | 2022-09-23 11:19 | ED ---
General Adult HPI - General Source: EMS Mode of arrival: EMS Limitations: no limitations <Keisha Foley - Last Filed: 09/23/22 14:18> <Sameer Lincoln - Last Filed: 09/23/22 16:01> - General Chief complaint: Syncope Stated complaint: Syncope Time Seen by Provider: 09/23/22 10:35 - History of Present Illness Initial comments: Patient is a pleasant 86-year-old male presenting to the emergency room via EMS after having an episode of sudden dizziness with diaphoresis and felt like he was going to pass out. He reports that he laid himself down and that the symptoms improved. He did not have any loss of consciousness or fall. He does report that prior to the event he was having a headache in the right frontal region that he took Tylenol for and he continues to have a mild headache. He denies any dizziness or diaphoresis at this time. He does have some decreased range of motion due to pain and tenderness in his right knee which is not new. He denies any other weakness or focal neurological deficits. He denies any chest pain, shortness of breath, abdominal pain, nausea, vomiting, altered mental status, fevers or chills. He is currently undergoing an extensive workup for the newly diagnosed metastatic lung cancer however there is no MRI on file for evaluation of brain metastases. 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 In addition to his surgery diagnosed lung cancer he has a past medical history significant for melanoma, COPD, pulmonary emboli and DVT on warfarin, prostate cancer treated with radiation seeds, hypertension, CAD with [place] with stenting in March 2022, GERD and sleep apnea with CPAP usage. (Keisha Foley) - Related Data Home Medications Medication Instructions Recorded Confirmed Cholecalciferol [Vitamin D3 (25 25 mcg PO DAILY 06/15/21 09/23/22 Mcg = 1000 Iu)] Losartan [Cozaar] 50 mg PO BID 06/15/21 09/23/22 Warfarin Sodium [Jantoven] 3 mg PO DIRECTED 04/06/22 09/23/22 Atorvastatin [Lipitor] 40 mg PO HS 09/14/22 09/23/22 Calcium Carbonate [Tums] 500 mg PO QID PRN 09/14/22 09/23/22 Escitalopram [Lexapro] 20 mg PO DAILY 09/14/22 09/23/22 Ubidecarenone [Co Q-10] 300 mg PO DAILY 09/23/22 09/23/22 Previous Rx's Medication Instructions Recorded Clopidogrel [Plavix] 75 mg PO DAILY #90 tab 04/07/22 Metoprolol Tartrate [Lopressor] 25 mg PO BID #180 tab 04/07/22 Allergies Allergy/AdvReac Type Severity Reaction Status Date / Time No Known Allergies Allergy Verified 09/23/22 12:11 Review of Systems ROS Other: All systems not noted in ROS Statement are negative. <Keisha Foley - Last Filed: 09/23/22 14:18> ROS Other: All systems not noted in ROS Statement are negative. <Sameer Lincoln - Last Filed: 09/23/22 16:01> ROS Statement: Those systems with pertinent positive or pertinent negative responses have been documented in the HPI. Past Medical History Past Medical History: Cancer, COPD, Deep Vein Thrombosis (DVT), GERD/Reflux, Hearing Disorder / Deafness, Hypertension, Myocardial Infarction (FL), Pulmonary Embolus (PE), Sleep Apnea/CPAP/BIPAP Additional Past Medical History / Comment(s): melanoma, back pain, pacemaker., hx of pe and dvt (14 yrs ago)., hearing aids.,. prostate cancer tx with radiation seed. CPAP Last Myocardial Infarction Date:: MARCH 2022 History of Any Multi-Drug Resistant Organisms: None Reported Past Surgical History: Heart Catheterization With Stent, Pacemaker Additional Past Surgical History / Comment(s): val filter ,wrist surgery, tom knee surgery. Past Anesthesia/Blood Transfusion Reactions: No Reported Reaction Additional Past Anesthesia/Blood Transfusion Reaction / Comment(s): difficult waking up after anesthesia, passed after anesthesia Date of Last Stent Placement:: MARCH 2022 Type of Cardiac Device: Permanent Pacemaker Device Placement Date:: medtronic 06/04/2020 Past Psychological History: No Psychological Hx Reported Smoking Status: Former smoker Past Alcohol Use History: Occasional Past Drug Use History: None Reported - Past Family History Mother Family Medical History: Cancer Father Family Medical History: CVA/TIA <Keisha Foley - Last Filed: 09/23/22 14:18> General Exam General appearance: alert, in no apparent distress Head exam: Present: atraumatic, normocephalic, normal inspection Eye exam: Present: normal appearance, PERRL, EOMI. Absent: scleral icterus, conjunctival injection, periorbital swelling ENT exam: Present: normal exam, mucous membranes moist, other ([place]) Neck exam: Present: normal inspection, full ROM. Absent: tenderness Respiratory exam: Present: normal lung sounds bilaterally. Absent: respiratory distress, wheezes, rales, rhonchi, stridor Cardiovascular Exam: Present: regular rate, normal rhythm, normal heart sounds. Absent: systolic murmur, diastolic murmur, rubs, gallop, clicks GI/Abdominal exam: Present: soft, normal bowel sounds. Absent: distended, tenderness, guarding, rebound, rigid Extremities exam: Absent: pedal edema Right Knee exam: Present: tenderness, swelling. Absent: full ROM Neurovascular tendon exam: Present: no vascular compromise Back exam: Present: normal inspection, full ROM Neurological exam: Present: alert, oriented X3, CN II-XII intact Expanded Speech: Present: fluid speech Cranial nerves: EOM's Intact: Normal, Tongue Deviation: Normal, Nystagmus: Normal, Facial Sensation: Normal Cerebellar function: Finger to Nose: Normal Upper motor neuron: Sanjeev Neglect: Normal Sensory exam: Upper Extremity Light Touch: Normal, Lower Extremity Light Touch: Normal Motor strength exam: RUE: 5, LUE: 5, RLE: 3 (secondary to new pain), LLE: 4 Eye Response: (4) open spontaneously Motor Response: (6) obeys commands Verbal Response: (5) oriented [place] Total: 15 Psychiatric exam: Present: normal affect, normal mood Skin exam: Present: warm, dry, intact, normal color. Absent: rash <Keisha Foley - Last Filed: 09/23/22 14:18> Course - Consultations Time: 11:30 Time: 11:45 Time: 13:57 <Keisha Foley - Last Filed: 09/23/22 14:18> Vital Signs 09/23/22 09/23/22 10:16 11:44 Temperature 98.6 F Pulse Rate 67 60 Respiratory 18 18 Rate Blood Pressure 96/78 111/68 O2 Sat by Pulse 96 99 Oximetry - Consultations Consultation #1: Call received by radiologist while interpreting the CT of the brain with results of hyperdense lesion consistent with hemorrhagic metastases to the right frontal region of the brain intracranially. (Keisha Foley) Consultation #2: Hemorrhagic metastases results discussed with son spouse and patient. Patient does not wish to have intervention or further testing done in regards to his newly found brain metastases with hemorrhage and is declining transfer to an ancillary facility. Patient family and patient discussed findings with Dr. Forrest patient's primary care provider [facility]. E and H page to notify of need for admission to comfort care. Will proceed with INR reversal and Decadron to help with symptom control. Will also give a dose of morphine for pain. (Keisha Foley) Consultation #3: Spoke with ER case mgr who has facilitated [facility] to come evaluate and admit patient for home hospice admission. Will hold admission to the hospital at this time for potential discharge home with [facility] hospice. Multiple family members at the bedside agreeable with this payment plan. Patient currently resting comfortably. (Keisha Foley) Medical Decision Making - Lab Data Result diagrams: 09/23/22 10:41 09/23/22 10:41 - Radiology Data Radiology results: report reviewed, image reviewed <Keisha Foley - Last Filed: 09/23/22 14:18> - Lab Data Result diagrams: 09/23/22 10:41 09/23/22 10:41 <Sameer Lincoln - Last Filed: 09/23/22 16:01> - Medical Decision Making 86-year-old presented to the emergency room with an episode of dizziness with diaphoresis and a frontal headache. No episode of fall or syncope. Recently diagnosed with metastatic lung cancer. High concern for possible brain mass. Will obtain CT of the brain along with a chest x-ray, CBC, CMP, PT INR d-dimer and lactic acid. EKG shows atrially paced rhythm. CT of the brain read called to provider by radiologist regarding possible metastatic hemorrhage to the right frontal lobe. Consistent with headache symptom. CT image interpreted by me revealing hyper dense lesion right frontal lobe consistent with metastatic hemorrhage correlating with current headache. Protocol regarding brain hemorrhage reviewed with patient and family and recommended transfer for treatment however patient and family wish to be admit nabor into hospice. INR is elevated but sub-therapeutic at 1.7 will proceed with reversal of INR along with Decadron to reduce swelling and morphine for pain at this time. Patient is currently resting comfortably. Please see course residing regarding consultations and discussions with patient's primary care provider, potential admitting team and case management/[facility]. Will discharge patient home in stable but serious condition with terminal prognosis admitted to [facility]. Questions and concerns of family and patient reviewed and answered. Will facilitate transfer back home via EMS once resources in place in the home per family and patient's wishes. Case discussed at length with Dr. Lincoln throughout the entire process. (Keisha Foley) Outpatient hospice was arranged after discussion with the patient, patient's PCP, family, and nurse practitioner Alaina. Patient was made DNR/DNI. He was discharged home under the care of [facility]. (Sameer Lincoln) - Lab Data Lab Results 09/23/22 09/23/22 09/23/22 Range/Units 10:41 10:41 10:41 WBC 11.0 H (3.8-10.6) k/uL RBC 4.83 (4.30-5.90) m/uL Hgb 13.9 (13.0-17.5) gm/dL Hct 43.3 (39.0-53.0) % MCV 89.7 (80.0-100.0) fL MCH 28.7 (25.0-35.0) pg MCHC 32.0 (31.0-37.0) g/dL RDW 15.1 (11.5-15.5) % Plt Count 265 (150-450) k/uL MPV 8.2 Neutrophils % 82 % Lymphocytes % 10 % Monocytes % 6 % Eosinophils % 1 % Basophils % 0 % Neutrophils # 9.0 H (1.3-7.7) k/uL Lymphocytes # 1.1 (1.0-4.8) k/uL Monocytes # 0.6 (0-1.0) k/uL Eosinophils # 0.1 (0-0.7) k/uL Basophils # 0.0 (0-0.2) k/uL Hypochromasia Moderate PT 16.5 H (9.0-12.0) sec INR 1.7 H (<1.2) APTT 29.0 (22.0-30.0) sec D-Dimer 1.57 H (<0.60) mg/L FEU Sodium 140 (137-145) mmol/L Potassium 4.1 (3.5-5.1) mmol/L Chloride 106 (98-107) mmol/L Carbon Dioxide 24 (22-30) mmol/L Anion Gap 10 mmol/L BUN 16 (9-20) mg/dL Creatinine 1.09 (0.66-1.25) mg/dL Est GFR (CKD-EPI)AfAm 72 (>60 ml/min/1.73 sqM) Est GFR (CKD-EPI)NonAf 62 (>60 ml/min/1.73 sqM) Glucose 138 H (74-99) mg/dL Lactic Ac Sepsis Rflx Plasma Lactic Acid Manas (0.7-2.0) mmol/L Calcium 8.8 (8.4-10.2) mg/dL Total Bilirubin 1.2 (0.2-1.3) mg/dL AST 23 (17-59) U/L ALT 17 (4-49) U/L Alkaline Phosphatase 89 (38-126) U/L Troponin I (0.000-0.034) ng/mL Total Protein 7.0 (6.3-8.2) g/dL Albumin 3.9 (3.5-5.0) g/dL 09/23/22 09/23/22 09/23/22 Range/Units 10:41 10:41 11:18 WBC (3.8-10.6) k/uL RBC (4.30-5.90) m/uL Hgb (13.0-17.5) gm/dL Hct (39.0-53.0) % MCV (80.0-100.0) fL MCH (25.0-35.0) pg MCHC (31.0-37.0) g/dL RDW (11.5-15.5) % Plt Count (150-450) k/uL MPV Neutrophils % % Lymphocytes % % Monocytes % % Eosinophils % % Basophils % % Neutrophils # (1.3-7.7) k/uL Lymphocytes # (1.0-4.8) k/uL Monocytes # (0-1.0) k/uL Eosinophils # (0-0.7) k/uL Basophils # (0-0.2) k/uL Hypochromasia PT (9.0-12.0) sec INR (<1.2) APTT (22.0-30.0) sec D-Dimer (<0.60) mg/L FEU Sodium (137-145) mmol/L Potassium (3.5-5.1) mmol/L Chloride (98-107) mmol/L Carbon Dioxide (22-30) mmol/L Anion Gap mmol/L BUN (9-20) mg/dL Creatinine (0.66-1.25) mg/dL Est GFR (CKD-EPI)AfAm (>60 ml/min/1.73 sqM) Est GFR (CKD-EPI)NonAf (>60 ml/min/1.73 sqM) Glucose (74-99) mg/dL Lactic Ac Sepsis Rflx Y Plasma Lactic Acid Manas 2.5 H* (0.7-2.0) mmol/L Calcium (8.4-10.2) mg/dL Total Bilirubin (0.2-1.3) mg/dL AST (17-59) U/L ALT (4-49) U/L Alkaline Phosphatase (38-126) U/L Troponin I 0.020 (0.000-0.034) ng/mL Total Protein (6.3-8.2) g/dL Albumin (3.5-5.0) g/dL - EKG Data EKG Comments: EKG completed at 1028 interrupted by me shows electronically atrial paced, ventricularly 62 bpm, ND interval 309 ms, QRS duration 101 ms, QT/QTC 405/410 ms, PRT axes 180, -20, -29 (Keisha Foley) - Radiology Data CT of brain without contrast image interpreted by radiologist impression there is hyperdense lesion involving the right frontal lobe compatible with acute hemorrhage favorable for hemorrhagic metastases. Degenerative and diffuse white matter changes mostly typical remote ischemia. Chest x-ray 2 views impression by radiologist stable chest with right lower lobe mass. (Keisha Foley) Critical Care Time Critical Care Time: Yes Total Critical Care Time: 35 <Sameer Lincoln - Last Filed: 09/23/22 16:01> Critical Care Time: Upon my evaluation, this patient had a high probability of imminent or life- threatening deterioration due to hospice initiation, hemorrhagic brain metast asis, which required my direct attention, intervention, and personal management. I have personally provided 35 minutes of critical care time exclusive of time spent on separately billable procedures. Time includes review of laboratory data, radiology results, discussion with consultants, and monitoring for potential decompensation. Interventions were performed as documented in my note. (Sameer Lincoln) Disposition Is patient prescribed a controlled substance at d/c from ED?: No <Keisha Foley - Last Filed: 09/23/22 14:18> <Sameer Lincoln - Last Filed: 09/23/22 16:01> Clinical Impression: Metastatic melanoma, Nontraumatic intracranial hemorrhage, unspecified Disposition: HOME SELF-CARE Condition: Poor Additional Instructions: [facility] home hospice has been initiated prior to discharge. Please contact [facility] with any questions or concerns regarding treatment or home needs. Referrals: Julius Bullock MD [Primary Care Provider] - 1-2 days [facility], [NON-STAFF] -
[2022-09-23 11:24] LABS: INR 1.7 (<1.2); Prothrombin Time 16.5 sec (9.0-12.0)
--- NOTE | 2022-09-23 11:30 | CT ---
EXAMINATION TYPE: CT brain wo con DATE OF EXAM: 09/23/2022 COMPARISON: None HISTORY: Syncope CT DLP: 1217.4 mGycm Automated exposure control for dose reduction was used. FINDINGS: Moderate generalized degenerative change with diffuse abnormal signal in the white matter. There is a n area of abnormal attenuation right frontal white matter measuring 3.2 cm suspicious for hemorrhage. Favor hemorrhagic metastasis. Additional 1 cm right frontal hyperdense lesion in the anterior interh emispheric fissure best noted on sagittal image 44. Calvarium is intact. Craniocervical junction is maintained. IMPRESSION: 1. There are hyperdense lesions involving the right frontal lobe as discussed above compatible with a cute hemorrhage. Favor hemorrhagic metastases. 2. Degenerative and diffuse nonspecific white matter changes most typical remote ischemia.
[2022-09-23] MEDS ORDERED: DEXAMETHASONE SOD PHOSPHATE 10 MG/ML 1 ML VIAL IVP STA (11:44)
[2022-09-23 11:45] VITALS: BP 111/68; PULSE 60
[2022-09-23] MEDS ORDERED: PHYTONADIONE 10 MG in SODIUM CHLORIDE 0.9% 50 ML IVPB STA (11:59)
[2022-09-23] MEDS ORDERED: MORPHINE SULFATE 2 MG/ML SYRINGE IVP STA (11:59)
[2022-09-23] MEDS ORDERED: NALOXONE 0.4 MG/ML 1 ML VIAL IV PRN (12:41)
[2022-09-23] MEDS ORDERED: IBUPROFEN 400 MG TAB PO PRN (12:48)
[2022-09-23] MEDS ORDERED: ALPRAZolam 0.25 MG TAB PO PRN (12:48)
[2022-09-23] MEDS ORDERED: ONDANSETRON 4 MG/2 ML VIAL IVP PRN (12:48)
[2022-09-23] MEDS ORDERED: ACETAMINOPHEN TAB 325 MG TAB PO PRN (12:48)
[2022-09-23] MEDS ORDERED: MORPHINE SULFATE 4 MG/ML SYRINGE IV PRN (12:48)
== END 2022-09-23 15:49 | disposition home or self-care (01) ==
LOC: EC 10:13
DX: C79.9 Secondary malignant neoplasm of unspecified site (principal); I62.9 Nontraumatic intracranial hemorrhage, unspecified; J44.9 Chronic obstructive pulmonary disease, unspecified; I25.2 Old myocardial infarction; I10 Essential (primary) hypertension; I26.99 Other pulmonary embolism without acute cor pulmonale; I25.10 Atherosclerotic heart disease of native coronary artery without angina pectoris; G47.30 Sleep apnea, unspecified; Z79.899 Other long term (current) drug therapy; Z79.01 Long term (current) use of anticoagulants; Z87.891 Personal history of nicotine dependence
CPT/HCPCS: 99291; 96365; 96375 ×2; 96376; 36415; 93005; 85379; 80053; 83605; 84484; 85025; 85610; 85730; 71046; 70450; J2270 ×2; J3430; J1100